=== PATIENT | male | born 1955 | race Native Hawaiian/Other Pacific Islander ===

== ENCOUNTER → 2019-09-29 | Day surgery (SDC) | payer OTHER ==
[2019-09-23 17:13] LABS: BASOPHIL % 1.5 % (0-2); PLATELET COUNT 182 x10^3mcL (130-400); RED CELL DISTRIBUTION WIDTH 14.3 % (11.5-14.5)
[2019-09-23 17:49] LABS: ALBUMIN 3.8 g/dL (3.4-5.0); BILIRUBIN TOTAL 0.53 mg/dL (0.20-1.00); CALCIUM 9.2 mg/dL (8.5-10.1); CARBON DIOXIDE 30.9 mmol/L (21-32)
[2019-09-23 19:05] LABS: TOTAL PROTEIN, SERUM 9.7 g/dL (6.4-8.2)
[2019-09-23 20:16] LABS: CREATININE SERUM 6.6 mg/dL (0.7-1.3)
--- NOTE | 2019-09-26 06:54 | NUR ---
COPIES OF LABS, EKG AND CXR FAXED TO DR INÉS BANKS'S OFFICE. COPIES TAKEN TO OR FOR ANESTHESIA TO REVIEW. COPY OF MEDICAL CLEARANCE ON CHART.
--- NOTE | 2019-09-27 15:28 | NUR ---
AFTER REVIEWING EKG, CXR AND LAB TEST RESULT; DR. ZELAYA, ANESTHESIOLOGIST GAVE NO RECOMMENDATION.
[~2019-09-29] VITALS: Ht 180.3 cm; Wt 104.3 kg
[2019-09-29 10:52] VITALS: BP 131/73
== END | disposition home or self-care (01) ==
LOC: OR 09-14 10:30 → DS 09:51 → OR 10:30 → DS 10:30 → OR 11-14 10:30
PROVIDERS: ATTEND Surgery
DX: N18.6 End stage renal disease (principal); Z11.59 Encounter for screening for other viral diseases; Z53.8 Procedure and treatment not carried out for other reasons
CPT/HCPCS: 82962; Q0092; U0003-CS

== ENCOUNTER 2019-10-20 07:34 | Day surgery (SDC) | payer OTHER ==
[2019-10-18 16:41] LABS: BASOPHIL % 1.1 % (0-2); PLATELET COUNT 169 x10^3mcL (130-400); RED CELL DISTRIBUTION WIDTH 14.4 % (11.5-14.5)
--- NOTE | 2019-10-18 16:50 | NUR ---
RECEIVED A PHONE CALL FROM [employer] SAYING THAT THE PATIENT'S POTASSIUM LEVEL 5.8, BUN/CREAT 77.0/10.4 (HEMODIALYSIS PATIENT). WILL SEND COPIES OF LAB RESULTS TO DR. BANKS'S OFFICE AND TO ANESTHESIOLOGIST FOR REVIEW.
[2019-10-18 16:55] LABS: ALBUMIN 3.4 g/dL (3.4-5.0); BILIRUBIN TOTAL 0.6 mg/dL (0.20-1.00); CALCIUM 8.7 mg/dL (8.5-10.1); CARBON DIOXIDE 29.9 mmol/L (21-32)
[2019-10-18 16:59] LABS: TOTAL PROTEIN, SERUM 8.7 g/dL (6.4-8.2)
[2019-10-18 17:00] LABS: CREATININE SERUM 10.4 mg/dL (0.7-1.3); POTASSIUM SERUM 5.8 mmol/L (3.5-5.1)
--- NOTE | 2019-10-19 11:07 | NUR ---
BMP WILL BE RECHECKED ON 10/20/19 (DAY OF SURGERY) PER DR. JOSHI, ANESTHESIOLOGIST.
[~2019-10-20] VITALS: Ht 180.3 cm; Wt 104.3 kg
[2019-10-20 08:07] VITALS: BP 122/78
[2019-10-20 09:03] LABS: CALCIUM 8.3 mg/dL (8.5-10.1); CARBON DIOXIDE 32.8 mmol/L (21-32)
[2019-10-20 09:08] LABS: CREATININE SERUM 9.7 mg/dL (0.7-1.3)
[2019-10-20 11:43] LABS: CALCIUM 8.6 mg/dL (8.5-10.1); CARBON DIOXIDE 29.1 mmol/L (21-32)
[2019-10-20 11:46] LABS: CREATININE SERUM 9.9 mg/dL (0.7-1.3); POTASSIUM SERUM 5.6 mmol/L (3.5-5.1)
[2019-10-20 16:44] VITALS: BP 132/75
== END 2019-10-20 16:00 | disposition home or self-care (01) ==
LOC: DS 07:34 → OR 07:34 → DS 16:00
PROVIDERS: ATTEND Surgery
DX: E11.22 Type 2 diabetes mellitus with diabetic chronic kidney disease (principal); I13.2 Hypertensive heart and chronic kidney disease with heart failure and with stage 5 chronic kidney disease, or end stage renal disease; I50.9 Heart failure, unspecified; N18.6 End stage renal disease; I73.9 Peripheral vascular disease, unspecified; I25.10 Atherosclerotic heart disease of native coronary artery without angina pectoris; E78.5 Hyperlipidemia, unspecified; I42.9 Cardiomyopathy, unspecified; E66.9 Obesity, unspecified; Z68.33 Body mass index [BMI] 33.0-33.9, adult; Z99.2 Dependence on renal dialysis; Z79.899 Other long term (current) drug therapy; Z79.84 Long term (current) use of oral hypoglycemic drugs
CPT/HCPCS: 82962; J0610; J0690; J1644; J2001; J2250; J3010